=== PATIENT | male | born 1970 | race American Indian/Alaskan Native ===

== ENCOUNTER 2018-05-31 12:00 | Inpatient (IN) | payer MEDICAID ==
[2018-05-31] MEDS ORDERED: Albuterol-Ipratrop 3 mg / 0.5 (3 ml) UD INH STA ×3 (13:46→15:45)
[2018-05-31] MEDS ORDERED: Albuterol-Ipratrop 3 mg / 0.5 (3 ml) UD ONE ×3 (13:48→16:02)
--- NOTE | 2018-05-31 13:48 | C.PDOC ---
History Of Present Illness 48 year old male, whose past medical history includes asthma, presents to the ED for evaluation of shortness of breath which began 2 days ago. Patient reports symptoms initially started as cough productive of yellow sputum and chest tightness. Patient states he is in a program with the [employer]. Patient and also reports fever and denies recent travel, history of hypertension or diabetes, or recent travel. Patient reports history of smoking. Time Seen by Provider: 05/31/18 13:12 Chief Complaint (Nursing): Shortness Of Breath History Per: Patient History/Exam Limitations: no limitations Onset/Duration Of Symptoms: Days (2) Current Symptoms Are (Timing): Still Present Quality: Aching Current Respiratory Medications: See Home Med List Associated Symptoms: Fever, Productive Cough (yellow ) Additional History Per: Patient Past Medical History Reviewed: Historical Data, Nursing Documentation, Vital Signs Vital Signs: Last Vital Signs Temp 98 F 05/31/18 12:07 Pulse 115 H 05/31/18 12:07 Resp 20 05/31/18 12:07 BP 135/74 05/31/18 12:07 Pulse Ox 96 05/31/18 12:40 - Medical History PMH: Asthma ("As a child") Surgical History: No Surg Hx Family History: States: Unknown Family Hx - Social History Hx Alcohol Use: No Hx Substance Use: No - Immunization History Hx Influenza Vaccination: Yes Hx Pneumococcal Vaccination: No Review Of Systems Constitutional: Positive for: Fever Cardiovascular: Positive for: Other (chest tightness ) Respiratory: Positive for: Cough, Shortness of Breath, Sputum (yellow ) Physical Exam - Physical Exam Appears: Non-toxic, No Acute Distress Skin: Normal Color, Warm, Dry Head: Atraumatic, Normacephalic Eye(s): bilateral: Normal Inspection Oral Mucosa: Moist Neck: Supple Chest: Symmetrical, No Deformity, No Tenderness Cardiovascular: Rhythm Regular, No Murmur Respiratory: Rhonchi, Wheezing (expiratory ) Gastrointestinal/Abdominal: Normal Exam, Bowel Sounds Extremity: Normal ROM, Capillary Refill (less than 2 seconds ) Neurological/Psych: Oriented x3, Normal Speech, Normal Cognition ED Course And Treatment - Laboratory Results Result Diagrams: 05/31/18 14:11 05/31/18 16:12 ECG: Interpreted By Me, Viewed By Me ECG Rhythm: Sinus Tachycardia Interpretation Of ECG: Sinus Tachycardia at rate 105bpm. Normal intervals, char[place] l axis. No ST/T wave changes. Rate From EC O2 Sat by Pulse Oximetry: 96 Pulse Ox Interpretation: Normal Medical Decision Making Medical Decision Making: Assessment: shortness of breath Plan: * bloodwork * CXR * EKG * Albuterol INH * Solu-Medrol IVP * reassess and disposition Progress: Bloodwork, CXR, EKG ordered and reviewed. Albuterol INH and Solu-Medrol IVP given. Disposition Discussed With Dr.: Oleksandr Chawla Doctor Will See Patient In The: Hospital Counseled Patient/Family Regarding: Studies Performed, Diagnosis - Disposition Disposition: HOSPITALIZED Disposition Time: 18:07 Condition: FAIR - Clinical Impression Clinical Impression: Shortness of breath - Scribe Statement The provider has reviewed the documentation as recorded by the Scribe (Mikayla Bello) Provider Attestation: All medical record entries made by the Scribe were at my direction and personally dictated by me. I have reviewed the chart and agree that the record accurately reflects my personal performance of the history, physical exam, medical decision making, and the department course for this patient. I have also personally directed, reviewed, and agree with the discharge instructions and disposition.
--- NOTE | 2018-05-31 14:13 | RAD ---
Date of service: 05/31/2018 HISTORY: Shortness of breath COMPARISON: No prior. TECHNIQUE: Chest PA and lateral FINDINGS: LINES AND TUBES: None. LUNG AND PLEURA: The lungs are well inflated and clear. No pleural effusion or pneumothorax. HEART AND MEDIASTINUM: The heart is not enlarged. No aortic atherosclerotic calcifications present. The hilar and mediastinal contours are within normal limits. SKELETAL STRUCTURES: The bony structures are within normal limits for the patient's age. VISUALIZED UPPER ABDOMEN: Normal. OTHER FINDINGS: None. IMPRESSION: No active pulmonary disease.
[2018-05-31 14:19] LABS: BASO % 0.4 % (0.0-2.0); EOS # 0.1 K/uL (0.0-0.7); EOS % 0.8 % (0.0-4.0); HEMOGLOBIN 13.7 g/dL (12.0-18.0); LYMPH # 1.1 K/uL (1.0-4.3); LYMPH % 12.1 % (20.0-40.0); MEAN CELL VOLUME 86.2 fL (80.0-94.0); MEAN CORPUSCULAR HEMOGLOBIN 27.8 pg (27.0-31.0); MEAN CORPUSCULAR HGB CONC 32.2 g/dL (33.0-37.0); MEAN PLATELET VOLUME 7.8 fL (7.2-11.7); MONO # 0.4 K/uL (0.0-0.8); MONO % 3.9 % (0.0-10.0); NEUT # 7.5 K/uL (1.8-7.0); NEUT % 82.8 % (50.0-75.0); RBC 4.94 Mil/uL (4.40-5.90); RED CELL DISTRIBUTION WIDTH 13.8 % (11.5-14.5); WHITE BLOOD COUNT 9.1 K/uL (4.8-10.8)
[2018-05-31 14:31] LABS: BLOOD UREA NITROGEN 12 mg/dL (9-20); GFR NON-AFRICAN AMERICAN > 60
[2018-05-31 14:35] LABS: ALB/GLOB RATIO 1.1 (1.0-2.1); ALBUMIN 4.7 g/dL (3.5-5.0); ALT/SGPT < 6 U/L (21-72); AST/SGOT 48 U/L (17-59)
[2018-05-31 14:40] LABS: B-TYPE NATRIURETIC PEPTIDE 68.1 pg/mL (0-450)
[2018-05-31] MEDS ORDERED: Iodixanol 320 MG/ML 100 ML BOTTLE IV ONE (16:56)
[2018-05-31] MEDS ORDERED: Iohexol 350mg/ml 100 ML ONE (16:57)
--- NOTE | 2018-05-31 17:53 | CT ---
Date of service: 05/31/2018 PROCEDURE: CT Chest with contrast (Pulmonary Angiogram) HISTORY: r/o pe COMPARISON: None available. TECHNIQUE: Axial computed tomography images were obtained of the chest in the pulmonary arterial phase of enhancement. Coronal and sagittal reformatted images were created and reviewed. Intravenous contrast dose: Radiation dose: Total exam DLP = 569.38 mGy-cm. This CT exam was performed using one or more of the following dose reduction techniques: Automated exposure control, adjustment of the mA and/or kV according to patient size, and/or use of iterative reconstruction technique. FINDINGS: PULMONARY ARTERIES: There are no filling defects in the pulmonary arteries to suggest acute pulmonary embolism. AORTA: No acute findings. No thoracic aortic aneurysm. No aortic atherosclerotic calcification or mural plaque present. LUNGS: The lungs are well inflated and clear. No nodule, mass or pulmonary consolidation. There is linear subsegmental atelectasis in the lingula in left lower lobe. PLEURAL SPACES: No effusion or pneumothorax. HEART: No cardiomegaly. No significant pericardial effusion. LYMPH NODES: Subcentimeter mediastinal and axillary lymph nodes are likely reactive. No pathologic mediastinal or hilar lymphadenopathy. BONES, CHEST WALL: Within normal limits for the patient's age. No fracture or destructive lesion OTHER FINDINGS: None. IMPRESSION: No CTA evidence for acute pulmonary embolism. Subcentimeter mediastinal and axillary lymph nodes are likely reactive. Multifocal linear atelectasis in the lingula and left lower lobe.
[2018-05-31] MEDS: guaiFENesin 600 mg ER Tab PO SCH (19:05)
[2018-05-31] MEDS ORDERED: Influenza Vaccine 60 mcg/0.5 mL SYR (4YR UP) IM ONE (20:35)
--- NOTE | 2018-05-31 22:02 | CP.PCM.HP ---
Present on Admission - Present on Admission Any Indicators Present on Admission: No Past Patient History - Past Medical History & Family History Past Medical History?: Yes - Past Social History Smoking Status: Former Smoker - PULMONARY Hx Asthma: Yes ("As a child") - NEUROLOGICAL Hx Neurological Disorder: No - HEENT Hx HEENT Problems: No - RENAL Hx Chronic Kidney Disease: No - ENDOCRINE/METABOLIC Hx Endocrine Disorders: No - HEMATOLOGICAL/ONCOLOGICAL Hx Blood Disorders: No - INTEGUMENTARY Hx Dermatological Problems: No - MUSCULOSKELETAL/RHEUMATOLOGICAL Hx Musculoskeletal Disorders: No Hx Falls: No - GASTROINTESTINAL Hx Gastrointestinal Disorders: No - GENITOURINARY/GYNECOLOGICAL Hx Genitourinary Disorders: No - PSYCHIATRIC Hx Psychophysiologic Disorder: No Hx Substance Use: No - SURGICAL HISTORY Hx Surgeries: No - ANESTHESIA Hx Anesthesia: No Meds Allergies/Adverse Reactions: Allergies Allergy/AdvReac Type Severity Reaction Status Date / Time No Known Allergies Allergy Verified 05/31/18 12:11 Results - Vital Signs Recent Vital Signs: Last Vital Signs Temp 98 F 05/31/18 12:07 Pulse 94 H 05/31/18 19:02 Resp 20 05/31/18 19:55 BP 105/69 05/31/18 19:02 Pulse Ox 94 L 05/31/18 19:55 - Labs Result Diagrams: 05/31/18 14:11 05/31/18 16:12 Labs: Laboratory Results - last 24 hr 05/31/18 05/31/18 05/31/18 14:11 14:11 16:12 WBC 9.1 RBC 4.94 Hgb 13.7 Hct 42.6 MCV 86.2 MCH 27.8 MCHC 32.2 L RDW 13.8 Plt Count 280 MPV 7.8 Neut % (Auto) 82.8 H Lymph % (Auto) 12.1 L [place] % (Auto) 3.9 Eos % (Auto) 0.8 Baso % (Auto) 0.4 Neut # (Auto) 7.5 H Lymph # (Auto) 1.1 [place] # (Auto) 0.4 Eos # (Auto) 0.1 Baso # (Auto) 0.0 D-Dimer, Quantitative Sodium 137 Potassium 5.9 H 4.2 Chloride 102 Carbon Dioxide 27 Anion Gap 14 BUN 12 Creatinine 0.8 Est GFR ( Amer) > 60 Est GFR (Non-Af Amer) > 60 Random Glucose 88 Calcium 9.0 Total Bilirubin 1.3 AST 48 ALT < 6 L Alkaline Phosphatase 80 Troponin I 0.0170 NT-Pro-B Natriuret Pep 68.1 Total Protein 8.9 H Albumin 4.7 Globulin 4.1 H Albumin/Globulin Ratio 1.1 05/31/18 16:12 WBC RBC Hgb Hct MCV MCH MCHC RDW Plt Count MPV Neut % (Auto) Lymph % (Auto) [place] % (Auto) Eos % (Auto) Baso % (Auto) Neut # (Auto) Lymph # (Auto) [place] # (Auto) Eos # (Auto) Baso # (Auto) D-Dimer, Quantitative < 200 Sodium Potassium Chloride Carbon Dioxide Anion Gap BUN Creatinine Est GFR ( Amer) Est GFR (Non-Af Amer) Random Glucose Calcium Total Bilirubin AST ALT Alkaline Phosphatase Troponin I NT-Pro-B Natriuret Pep Total Protein Albumin Globulin Albumin/Globulin Ratio
[2018-05-31] MEDS: Amoxicillin-Clav 875-125 mg Tab PO SCH (22:32)
[2018-06-01] MEDS: Albuterol 0.083% Inhal Sol (2.5 mg/3 mL) UD INH SCH ×2 (01:41→10:08)
--- NOTE | 2018-06-01 05:42 | HP ---
CHIEF COMPLAINT: Shortness of breath for one day. HISTORY OF PRESENT ILLNESS: This is a 48-year-old male who is a smoker, social ETOH user, who is not on any medication. He had childhood asthma and he has not been sick for a long time with no history of intubation and in his usual status of health. He is ambulatory and independent in activities of daily living. He is compliant with diet, medication and followup. He came in because of cough, congestion, shortness of breath, thick sputum production, chills, rigors, body aches, tiredness, anorexia, malaise, and fatigue. He denies any polyuria, polydipsia or polyphagia. He denies any nausea, vomiting or diarrhea. He denies any history of trauma, fall, loss of consciousness. No history of seizure-like activity. He denies any tingling, numbness, paresthesias of the leg. There is no history of joint pain or hip pain. There is no history of fever, chills but he has dirty yellow sputum production. ALLERGIES: UNKNOWN ALLERGIES. CURRENT MEDICATIONS: None. SOCIAL HISTORY: He smokes and drinks. FAMILY HISTORY: Noncontributory. PHYSICAL EXAMINATION: GENERAL: A middle-aged male in no distress. VITAL SIGNS: Blood pressure is 128/64, pulse 100, respiratory rate 20, and temperature 99. SKIN: No rashes. No bruises. No purpura. No petechiae. HEENT: Atraumatic and normocephalic. Negative pallor. Negative jaundice. Extraocular movements are intact. NECK: Supple. Flat neck veins. No JVD. No lymph node. No thyromegaly. No carotid bruit. CHEST WALL: Bilateral symmetrical expansion. No tenderness. LUNGS: Bilaterally decreased air entry. Positive inspiratory and expiratory rhonchi. CARDIOVASCULAR SYSTEM: PMI not localized. S1 and S2. Regular. No heave noted. ABDOMEN: Soft, nontender. Bowel sounds are positive. RECTAL: No masses. No bleeding. EXTREMITIES: No clubbing, cyanosis, or edema. CENTRAL NERVOUS SYSTEM: Awake, alert, oriented x3. ASSESSMENT: 1. Acute exacerbation of bronchial asthma. 2. Tracheobronchitis, rule out pneumonia. PLAN: Admit. Detailed orders are written. Seen and examined. Oleksandr Chawla MD
[2018-06-01] MEDS: Amoxicillin-Clav 875-125 mg Tab PO SCH (09:50)
[2018-06-01] MEDS: guaiFENesin 600 mg ER Tab PO SCH (09:51)
[2018-06-01 15:41] VITALS: PULSE 109
[2018-06-01 16:16] VITALS: BP 162/75; RESP 20; TEMP 98.2; O2SAT 98
--- NOTE | 2018-06-01 21:25 | CP.PCM.DIS ---
Provider - Provider Date of Admission: 05/31/18 18:05 Attending physician: Oleksandr Chawla MD Time Spent in preparation of Discharge (in minutes): 30 Hospital Course - Lab Results Lab Results: Most Recent Lab Values WBC 9.1 K/uL (4.8-10.8) 05/31/18 14:11 RBC 4.94 Mil/uL (4.40-5.90) 05/31/18 14:11 Hgb 13.7 g/dL (12.0-18.0) 05/31/18 14:11 Hct 42.6 % (35.0-51.0) 05/31/18 14:11 MCV 86.2 fL (80.0-94.0) 05/31/18 14:11 MCH 27.8 pg (27.0-31.0) 05/31/18 14:11 MCHC 32.2 g/dL (33.0-37.0) L 05/31/18 14:11 RDW 13.8 % (11.5-14.5) 05/31/18 14:11 Plt Count 280 K/uL (130-400) 05/31/18 14:11 MPV 7.8 fL (7.2-11.7) 05/31/18 14:11 Neut % (Auto) 82.8 % (50.0-75.0) H 05/31/18 14:11 Lymph % (Auto) 12.1 % (20.0-40.0) L 05/31/18 14:11 [place] % (Auto) 3.9 % (0.0-10.0) 05/31/18 14:11 Eos % (Auto) 0.8 % (0.0-4.0) 05/31/18 14:11 Baso % (Auto) 0.4 % (0.0-2.0) 05/31/18 14:11 Neut # (Auto) 7.5 K/uL (1.8-7.0) H 05/31/18 14:11 Lymph # (Auto) 1.1 K/uL (1.0-4.3) 05/31/18 14:11 [place] # (Auto) 0.4 K/uL (0.0-0.8) 05/31/18 14:11 Eos # (Auto) 0.1 K/uL (0.0-0.7) 05/31/18 14:11 Baso # (Auto) 0.0 K/uL (0.0-0.2) 05/31/18 14:11 D-Dimer, Quantitative < 200 ng/mlDDU (0-243) 05/31/18 16:12 Sodium 137 mmol/L (132-148) 05/31/18 14:11 Potassium 4.2 mmol/L (3.6-5.2) 05/31/18 16:12 Chloride 102 mmol/L (98-107) 05/31/18 14:11 Carbon Dioxide 27 mmol/L (22-30) 05/31/18 14:11 Anion Gap 14 (10-20) 05/31/18 14:11 BUN 12 mg/dL (9-20) 05/31/18 14:11 Creatinine 0.8 mg/dL (0.8-1.5) 05/31/18 14:11 Est GFR ( Amer) > 60 05/31/18 14:11 Est GFR (Non-Af Amer) > 60 05/31/18 14:11 Random Glucose 88 mg/dL (75-110) 05/31/18 14:11 Calcium 9.0 mg/dl (8.6-10.4) 05/31/18 14:11 Total Bilirubin 1.3 mg/dL (0.2-1.3) 05/31/18 14:11 AST 48 U/L (17-59) 05/31/18 14:11 ALT < 6 U/L (21-72) L 05/31/18 14:11 Alkaline Phosphatase 80 U/L (38-126) 05/31/18 14:11 Troponin I 0.0170 ng/mL (0.00-0.120) 05/31/18 14:11 NT-Pro-B Natriuret Pep 68.1 pg/mL (0-450) 05/31/18 14:11 Total Protein 8.9 g/dL (6.3-8.3) H 05/31/18 14:11 Albumin 4.7 g/dL (3.5-5.0) 05/31/18 14:11 Globulin 4.1 gm/dL (2.2-3.9) H 05/31/18 14:11 Albumin/Globulin Ratio 1.1 (1.0-2.1) 05/31/18 14:11 Discharge Plan - Discharge Medications Prescriptions: Amoxicillin/Clavulanate [Augmentin 875 MG-125 MG Tab] 1 tab PO Q12H #10 tab Methylprednisolone [Medrol Dose Pack (21 tabs)] 4 mg PO DAILY #21 mg Albuterol HFA [Ventolin HFA 90 mcg/actuation (8 g)] 2 puff IH [id number] #1 puff - Follow Up Plan Condition: FAIR Disposition: HOME/ ROUTINE Instructions: Asthma, Adult (DC), Shortness of Breath (Dyspnea) (DC), Albuterol, Amoxicillin and Clavulanate, Methylprednisolone Additional Instructions: Please f/u with Dr. Chawla office in 1 week Please continue medication as per med. rec. Referrals: Oleksandr Chawla MD [Staff Provider] -
--- NOTE | 2018-06-02 04:03 | DS ---
DISCHARGE DIAGNOSES: 1. Exacerbation of asthma. 2. Tracheobronchitis. HISTORY OF PRESENT ILLNESS: This is a 48-year-old male with history of bronchial asthma, and he came in because of acute episode of bronchial asthma, cough, congestion, thick yellow sputum production. The patient was admitted to the floor. The patient was placed on Solu-Medrol, oxygen nebulizer treatment, Augmentin, and the patient did well. He is feeling better. His peak flow is normal. His condition is stable upon discharge. PHYSICAL EXAMINATION: LUNGS: Decreased air entry. Positive rhonchi. CARDIOVASCULAR SYSTEM: S1 and S2 regular. ABDOMEN: Soft. PLAN: Discharge the patient. Oleksandr Chawla MD
[2018-06-03] MEDS ORDERED: Influenza Vaccine 60 mcg/0.5 mL SYR (4YR UP) IM ONE (10:00)
[2018-06-03] MEDS ORDERED: Pneumococcal 23-Valent Vaccine IM ONE (20:34)
== END 2018-06-01 16:36 | disposition home or self-care (01) | DRG 97 ==
LOC: C.ER 12:00 → C.9E 18:05 → C.5S 18:59
PROVIDERS: ADMIT Internal Medicine; ATTEND Internal Medicine
DX: J45.901 Unspecified asthma with (acute) exacerbation (principal); J40 Bronchitis, not specified as acute or chronic; I10 Essential (primary) hypertension; F17.200 Nicotine dependence, unspecified, uncomplicated